=== PATIENT | male | born 1950 | race Caucasian/White ===

== ENCOUNTER 2018-05-20 16:12 | Emergency (ER) | payer OTHER ==
[~2018-05-20] VITALS: Ht 182.9 cm; Wt 72.6 kg
[2018-05-20 17:02] LABS: BASOPHILS PERCENT AUTO 1 % (0-2); EOSINOPHILS ABSOLUTE AUTO 0.32 K/mm3 (0.00-0.68); EOSINOPHILS PERCENT AUTO 4 % (0-6); Hematocrit 45.3 % (37.0-53.0); Hemoglobin 15.8 g/dL (13.5-17.5); IMMATURE GRAN ABSOLUTE AUTO 0.02 K/mm3 (0.00-0.10); IMMATURE GRAN PERCENT AUTO 0 % (0-1); LYMPHOCYTES PERCENT AUTO 21 % (21-46); MONOCYTES ABSOLUTE AUTO 0.64 K/mm3 (0.16-1.47); MONOCYTES PERCENT AUTO 9 % (4-13); Mean Corpuscular HGB Conc 34.9 g/dL (31.5-36.5); Mean Corpuscular Volume 95 fL (80-100); Mean Platelet Volume 9.4 fL (9.1-12.4); NEUTROPHILS ABSOLUTE AUTO 4.86 K/mm3 (1.96-9.15); NEUTROPHILS PERCENT AUTO 65 % (41-73); Platelet Count 187 K/mm3 (150-400); RDW Coefficient Variation 11.7 % (11.7-14.2); RDW Standard Deviation 40.6 fL (35.1-46.3); Red Blood Cell Count 4.79 M/mm3 (4.30-5.90); White Blood Cell Count 7.54 K/mm3 (4.00-11.30)
[2018-05-20] MEDS ORDERED: ONDA4ODT MM (17:31)
[2018-05-20 17:32] LABS: Alanine Aminotransfer (ALT/SGP 27 U/L (12-78); Albumin, Blood 3.9 g/dL (3.4-5.0); Albumin/Globulin Ratio 1.2 (0.8-1.8); Alk Phos 67 U/L (50-136); Anion Gap 8 mmol/L (6-16); Aspartate Aminotrans (AST/SGOT 13 U/L (12-37); Bilirubin, Total 0.4 mg/dL (0.1-1.0); Blood Urea Nitrogen 19 mg/dL (8-24); Bun/Creatinine Ratio 25.9 (12.0-20.0); CO2, Blood 29 mmol/L (21-32); Calcium, Blood 9.3 mg/dL (8.5-10.1); Chloride, Blood 106 mmol/L (98-108); Creatinine, Blood 0.73 mg/dL (0.60-1.20); Globulin, Blood 3.2 g/dL (2.2-4.0); Glomerular Filtration Rate >60 (60-); Glucose, Blood 155 mg/dL (70-99); Potassium, Blood 3.3 mmol/L (3.5-5.5); Sodium, Blood 143 mmol/L (136-145); Total Protein, Blood 7.1 g/dL (6.4-8.2); Troponin I <0.015 ng/mL (0.000-0.040)
== END 2018-05-20 18:20 | disposition home or self-care (01) ==
LOC: ER 16:12
PROVIDERS: Emergency Medicine
DX: R55 Syncope and collapse (principal); E11.9 Type 2 diabetes mellitus without complications
CPT/HCPCS: 71046; 80053; 84484; 85025; 93005; 93010; 99284-25

== ENCOUNTER 2018-12-23 15:15 | Inpatient (IN) | payer OTHER ==
[~2018-12-23] VITALS: Ht 167.6 cm; Wt 71.2 kg
[~2018-12-23 15:15] MED LIST: ONDA4ODT MM
[2018-12-23 15:57] LABS: BASOPHILS ABSOLUTE AUTO 0.07 K/mm3 (0.00-0.23); BASOPHILS PERCENT AUTO 1 % (0-2); EOSINOPHILS PERCENT AUTO 5 % (0-6); Hematocrit 47.1 % (37.0-53.0); Hemoglobin 16.1 g/dL (13.5-17.5); IMMATURE GRAN ABSOLUTE AUTO 0.02 K/mm3 (0.00-0.10); IMMATURE GRAN PERCENT AUTO 0 % (0-1); LYMPHOCYTES ABSOLUTE AUTO 2.03 K/mm3 (0.84-5.20); LYMPHOCYTES PERCENT AUTO 26 % (21-46); MONOCYTES ABSOLUTE AUTO 0.68 K/mm3 (0.16-1.47); MONOCYTES PERCENT AUTO 9 % (4-13); Mean Corpuscular HGB 33.6 pg (26.0-34.0); Mean Corpuscular HGB Conc 34.2 g/dL (31.5-36.5); Mean Corpuscular Volume 98 fL (80-100); Mean Platelet Volume 9.7 fL (9.1-12.4); NEUTROPHILS ABSOLUTE AUTO 4.59 K/mm3 (1.96-9.15); NEUTROPHILS PERCENT AUTO 59 % (41-73); Platelet Count 191 K/mm3 (150-400); RDW Coefficient Variation 11.6 % (11.7-14.2); RDW Standard Deviation 41.9 fL (35.1-46.3); Red Blood Cell Count 4.79 M/mm3 (4.30-5.90); White Blood Cell Count 7.79 K/mm3 (4.00-11.30)
[2018-12-23 16:10] LABS: Alanine Aminotransfer (ALT/SGP 26 U/L (12-78); Albumin, Blood 3.7 g/dL (3.4-5.0); Albumin/Globulin Ratio 1.2 (0.8-1.8); Alk Phos 85 U/L (50-136); Anion Gap 5 mmol/L (6-16); Aspartate Aminotrans (AST/SGOT 12 U/L (12-37); Bilirubin, Total 0.4 mg/dL (0.1-1.0); Blood Urea Nitrogen 25 mg/dL (8-24); CO2, Blood 26 mmol/L (21-32); Chloride, Blood 109 mmol/L (98-108); Creatinine, Blood 0.78 mg/dL (0.60-1.20); Glomerular Filtration Rate >60 (60-); Glucose, Blood 99 mg/dL (70-99); Potassium, Blood 4.2 mmol/L (3.5-5.5); Sodium, Blood 140 mmol/L (136-145); Total Protein, Blood 6.7 g/dL (6.4-8.2); Troponin I <0.015 ng/mL (0.000-0.040)
[2018-12-23] MEDS ORDERED: Spironolactone25 MG PO (16:36)
[2018-12-23] MEDS ORDERED: TRAZ50 PO (16:36)
[2018-12-23] MEDS ORDERED: VENLAFAXINE HCL75 MG PO (16:37)
[2018-12-23] MEDS ORDERED: LOSARTAN POTAS100 MG PO (16:37)
[2018-12-23] MEDS ORDERED: Amlodipine Besy10 MG PO (16:38)
[2018-12-23] MEDS ORDERED: Inderal80 MG PO (16:38)
[2018-12-23] MEDS ORDERED: JARDIANCE25 MG PO (16:38)
[2018-12-23] MEDS ORDERED: TRULICITY0.75 MG/0. SC (16:39)
[2018-12-23] MEDS ORDERED: Pravachol40 MG PO (16:39)
[2018-12-23] MEDS ORDERED: METFORMIN HCL500 MG PO (16:40)
[2018-12-23] MEDS ORDERED: GLIP5 PO (16:41)
[2018-12-23] MEDS ORDERED: Ventolin/Prove6.7 GM INH (16:53)
--- NOTE | 2018-12-23 18:49 | NUR ---
PT ARRIVED TO PCU 3 VIA GURNEY FROM ED. REPORT WAS OBTAINED. PT HAS NO SYMPTOMS, STATES HE FEELS FINE, IS A/OX3, INDEPENDENT, ASKING TO GO SMOKE, THIS WAS DISCURAGED, AT BEDSIDE, SHE IS A MEDICAL FLOOR NURSE, Arron CORTÉS. AFEBRILE, ORIENTED TO ROOM LAYOUT CALL SYSTEM, CALL LIGHT IN REACH.
[2018-12-24 04:07] LABS: BASOPHILS ABSOLUTE AUTO 0.11 K/mm3 (0.00-0.23); BASOPHILS PERCENT AUTO 1 % (0-2); EOSINOPHILS ABSOLUTE AUTO 0.39 K/mm3 (0.00-0.68); EOSINOPHILS PERCENT AUTO 5 % (0-6); Hematocrit 46.1 % (37.0-53.0); Hemoglobin 15.6 g/dL (13.5-17.5); IMMATURE GRAN ABSOLUTE AUTO 0.02 K/mm3 (0.00-0.10); IMMATURE GRAN PERCENT AUTO 0 % (0-1); LYMPHOCYTES ABSOLUTE AUTO 3.08 K/mm3 (0.84-5.20); LYMPHOCYTES PERCENT AUTO 38 % (21-46); MONOCYTES ABSOLUTE AUTO 0.71 K/mm3 (0.16-1.47); MONOCYTES PERCENT AUTO 9 % (4-13); Mean Corpuscular HGB 33.2 pg (26.0-34.0); Mean Corpuscular HGB Conc 33.8 g/dL (31.5-36.5); Mean Corpuscular Volume 98 fL (80-100); Mean Platelet Volume 9.8 fL (9.1-12.4); NEUTROPHILS ABSOLUTE AUTO 3.74 K/mm3 (1.96-9.15); NEUTROPHILS PERCENT AUTO 47 % (41-73); Platelet Count 171 K/mm3 (150-400); RDW Coefficient Variation 11.4 % (11.7-14.2); RDW Standard Deviation 41.9 fL (35.1-46.3); White Blood Cell Count 8.05 K/mm3 (4.00-11.30)
[2018-12-24 04:30] LABS: Alanine Aminotransfer (ALT/SGP 21 U/L (12-78); Albumin, Blood 3.5 g/dL (3.4-5.0); Albumin/Globulin Ratio 1.2 (0.8-1.8); Alk Phos 83 U/L (50-136); Anion Gap 8 mmol/L (6-16); Aspartate Aminotrans (AST/SGOT 11 U/L (12-37); Bilirubin, Total 0.2 mg/dL (0.1-1.0); Blood Urea Nitrogen 26 mg/dL (8-24); Bun/Creatinine Ratio 31.5 (12.0-20.0); CO2, Blood 25 mmol/L (21-32); Calcium, Blood 8.6 mg/dL (8.5-10.1); Chloride, Blood 109 mmol/L (98-108); Creatinine, Blood 0.83 mg/dL (0.60-1.20); Globulin, Blood 2.9 g/dL (2.2-4.0); Glomerular Filtration Rate >60 (60-); Glucose, Blood 184 mg/dL (70-99); Magnesium, Blood 1.8 mg/dL (1.6-2.4); Potassium, Blood 3.7 mmol/L (3.5-5.5); Sodium, Blood 142 mmol/L (136-145); Total Protein, Blood 6.4 g/dL (6.4-8.2)
--- NOTE | 2018-12-24 05:23 | NUR ---
SHIFT SUMMARY PT SLEEPING IN ROOM COMFORTABLY AT THIS TIME. NO ACUTE CHANGES IN STATUS SINCE ARRIVAL TO UNIT. PT SLEPT WELL T/O NIGHT. DENIED NEEDS. RESP EVEN UNLABORED ON RA W/ SATS >92%. DENIED ANY CP OR SOB T/O NIGHT. PT DID HAVE SEVERAL EPISDOES OF SINUS GHANSHYAM AND INTERMITTEN 2ND HB. PT REMAINED ASYMPTOMATIC DURING THESE TIMES. HR WAS NOTED TO DROP TO 30'S AT TIMES DURING HB, PT IN SR WHEN NOT IN HB. DENIED PAIN. PT MADE NPO AT MIDNIGHT FOR DUAL CHAMBER PACER PLACEMENT IN AM BY CARDIO. CALL LIGHT IN REACH.
--- NOTE | 2018-12-24 12:30 | NUR ---
NOTIFIED PT IS TO BE DISCHARGED FROM AFTERNOON BABYSITTER AFTER PROCEDURE.
--- NOTE | 2018-12-24 13:12 | NUR ---
DISCHARGE PAPERWORK SPOKE WITH VICKEY Wills RN. SHE STATED THAT SHE WILL COMPLETE DISCHARGE PAPWERWORK AND LET US KNOW WHEN IT IS COMPLETE.
--- NOTE | 2018-12-24 13:50 | NUR ---
PT UP IN THE CHAIR EATING LUNCH. PT ALERT AND ORIENTED, PLEASENT AND COOPERATIVE. PT DENIES PAIN OR DISCOMFORT. MONITOR V PACED 80'S, B/P 126/68, SPO2 97% RA. L CHEST PACEMAKER SITE, NO SWELLING/HEMATOMA, PRESSURE DRSG INTACT.
--- NOTE | 2018-12-24 14:30 | NUR ---
PT AMB TO BATHROOM, TOLERATED ACTIVITY WELL; PRESSURE DRSG REMOVED SITE WITHOUT SWELLING/HEMATOMA, TEGADERM DRSG INTACT. PT'S IV REMOVED-CANNULA INTACT, ASSISTING PT GETTING DRESSED.
--- NOTE | 2018-12-24 14:42 | NUR ---
PT AND WIFRE RECEIVED DISCHARGE INSTRUCTIONS, MED LIST AND "AFTER CARE" INSTRUCTIONS; VERBALIZED GOOD UNDERSTANING. PT WAS SENT HOME WITH A SLING TO LIMIT MOVEMENT OF LEFT ARM.
--- NOTE | 2018-12-24 15:02 | NUR ---
PT SITTING IN BED; SPOUSE AT BEDSIDE; PT A&O X 4; PT NPO FOR PACER PLACEMENT TODAY; PT CALM AND COMPLIANT W/ CARE; LUNG SOUNDS CLEAR T/O; BREATHING EVEN AND UNLABORED; ON RA W/ O2 SATS >92; NO EDEMA NOTED; PT TO GO TO AUTOMOBILE [employer]RA[employer] BONDER THIS AM; BED IN LOWEST POSITION; CALL LIGHT IN REACH; WILL CONTINUE TO MONITOR
== END 2018-12-24 14:42 | disposition home or self-care (01) | DRG 244 ==
LOC: ER 15:15 → PCU 17:20
PROVIDERS: Emergency Medicine; ADMIT Internal Medicine
PROC: 0JH606Z Insertion of Pacemaker, Dual Chamber into Chest Subcutaneous Tissue and Fascia, Open Approach (ICD-10-PCS; principal; 2018-12-24)
PROC: 02HK3JZ Insertion of Pacemaker Lead into Right Ventricle, Percutaneous Approach (ICD-10-PCS; 2018-12-24)
DX: I44.1 Atrioventricular block, second degree (principal); I25.10 Atherosclerotic heart disease of native coronary artery without angina pectoris; I10 Essential (primary) hypertension; E11.9 Type 2 diabetes mellitus without complications; E78.5 Hyperlipidemia, unspecified; F41.8 Other specified anxiety disorders; I35.0 Nonrheumatic aortic (valve) stenosis; Z95.1 Presence of aortocoronary bypass graft
CPT/HCPCS: 33208; 36415; 71046; 80053; 82947; 83036; 83735; 84443; 84484; 85025; 93005; 93010; 99152; 99153; 99284-25; C1785; C1898; J0690; J1644; J2250; J3010; J7030; J7040

== ENCOUNTER → 2020-05-21 | Outpatient (CLI) | payer BC, OTHER ==
[~2020-05-21] MED LIST changes: +Afrin15 ML; +Amlodipine Besy10 MG PO; +GLIP5 PO; +HYDR1TAB94 PO; +Inderal40 MG PO; +Inderal80 MG PO; +JARDIANCE25 MG PO; +LOSARTAN POTAS100 MG PO; +MELATONIN5 M1 PO; +METFORMIN HCL500 MG PO; +NEURONTIN300 MG PO; +OMEP20ER PO; +OZEMPIC0.25 MG/0. SC; +Pravachol40 MG PO; +Spironolactone25 MG PO; +TAMS.4ER PO; +TAMSULOSIN HCL0.4 M1 PO; +TRAZ50 PO; +TRULICITY0.75 MG/0. SC; +VENLAFAXINE HCL75 MG PO; +Ventolin/Prove6.7 GM INH
[2020-05-22 10:20] LABS: Stool Occult Bld Immuno 1 Negative (NEGATIVE)
[2020-05-22 11:52] LABS: C DIFFICILE DNA Negative (Negative)
== END | disposition home or self-care (01) ==
LOC: LAB SHORT 08:15 → LAB EV 08:15
PROVIDERS: General Practice
DX: R10.9 Unspecified abdominal pain (principal)
CPT/HCPCS: 82274; 87015; 87045; 87046; 87205; 87328; 87493; 87899

== ENCOUNTER → 2023-07-24 | Outpatient (CLI) | payer OTHER ==
[~2023-07-24] MED LIST changes: +ALBU90OI INH; +ASPI81CH PO; +CEFTRIAXONE2 G1 IV; +Flonase 0.05% N16 GM; +LACRI-LUBE BOTHEYES; +LOSA50 PO; +METF500 PO; +MOUNJARO2.5 MG/0.5; +Nicoderm Cq1 EAC1 TOP; +PRAVASTATIN SOD40 MG PO; -Pravachol40 MG PO; +VISBIOME 112.51 EACH PO; +[UNRECOGNIZED DRUG - CODE] MT
[2023-07-24 13:35] LABS: BASOPHILS ABSOLUTE AUTO 0.14 K/mm3 (0.00-0.23); BASOPHILS PERCENT AUTO 2 % (0-2); EOSINOPHILS ABSOLUTE AUTO 0.21 K/mm3 (0.00-0.68); EOSINOPHILS PERCENT AUTO 2 % (0-6); Hematocrit 36.7 % (37.0-53.0); Hemoglobin 12.3 g/dL (13.5-17.5); IMMATURE GRAN PERCENT AUTO 1 % (0-1); LYMPHOCYTES ABSOLUTE AUTO 1.79 K/mm3 (0.84-5.20); LYMPHOCYTES PERCENT AUTO 19 % (21-46); MONOCYTES ABSOLUTE AUTO 0.55 K/mm3 (0.16-1.47); MONOCYTES PERCENT AUTO 6 % (4-13); Mean Corpuscular HGB 33.3 pg (26.0-34.0); Mean Corpuscular HGB Conc 33.5 g/dL (31.5-36.5); Mean Corpuscular Volume 100 fL (80-100); Mean Platelet Volume 10.2 fL (9.1-12.4); NEUTROPHILS ABSOLUTE AUTO 6.43 K/mm3 (1.96-9.15); NEUTROPHILS PERCENT AUTO 70 % (41-73); Platelet Count 229 K/mm3 (150-400); RDW Coefficient Variation 12.7 % (11.7-14.2); RDW Standard Deviation 45.1 fL (35.1-46.3); Red Blood Cell Count 3.69 M/mm3 (4.30-5.90); White Blood Cell Count 9.22 K/mm3 (4.00-11.30)
[2023-07-24 14:46] LABS: Albumin, Blood 2.8 g/dL (3.4-5.0); Albumin/Globulin Ratio 0.7 (0.8-1.8); Bilirubin, Total 0.3 mg/dL (0.1-1.0); Calcium, Blood 8.8 mg/dL (8.5-10.1); Creatinine, Blood 0.67 mg/dL (0.60-1.20); Globulin, Blood 3.8 g/dL (2.2-4.0); Potassium, Blood 3.9 mmol/L (3.5-5.5); Total Protein, Blood 6.6 g/dL (6.4-8.2)
== END ==
LOC: LAB EV 11:29 → LAB SHORT 11:29
PROVIDERS: Nurse Practitioner Family
DX: A41.9 Sepsis, unspecified organism (principal)
CPT/HCPCS: 80053; 85025

== ENCOUNTER → 2023-07-31 | Outpatient (CLI) | payer OTHER ==
[2023-07-31 19:15] LABS: BASOPHILS ABSOLUTE AUTO 0.15 K/mm3 (0.00-0.23); BASOPHILS PERCENT AUTO 1 % (0-2); EOSINOPHILS ABSOLUTE AUTO 0.45 K/mm3 (0.00-0.68); EOSINOPHILS PERCENT AUTO 4 % (0-6); Hematocrit 36.7 % (37.0-53.0); Hemoglobin 12.3 g/dL (13.5-17.5); IMMATURE GRAN ABSOLUTE AUTO 0.05 K/mm3 (0.00-0.10); IMMATURE GRAN PERCENT AUTO 1 % (0-1); LYMPHOCYTES ABSOLUTE AUTO 1.76 K/mm3 (0.84-5.20); LYMPHOCYTES PERCENT AUTO 17 % (21-46); MONOCYTES ABSOLUTE AUTO 0.43 K/mm3 (0.16-1.47); MONOCYTES PERCENT AUTO 4 % (4-13); Mean Corpuscular HGB 33.7 pg (26.0-34.0); Mean Corpuscular HGB Conc 33.5 g/dL (31.5-36.5); Mean Corpuscular Volume 101 fL (80-100); Mean Platelet Volume 9.8 fL (9.1-12.4); NEUTROPHILS ABSOLUTE AUTO 7.52 K/mm3 (1.96-9.15); NEUTROPHILS PERCENT AUTO 73 % (41-73); Platelet Count 233 K/mm3 (150-400); RDW Coefficient Variation 13.7 % (11.7-14.2); Red Blood Cell Count 3.65 M/mm3 (4.30-5.90); White Blood Cell Count 10.36 K/mm3 (4.00-11.30)
[2023-07-31 19:24] LABS: Albumin, Blood 2.9 g/dL (3.4-5.0); Albumin/Globulin Ratio 0.8 (0.8-1.8); Bilirubin, Total 0.2 mg/dL (0.1-1.0); Bun/Creatinine Ratio 30.7 (12.0-20.0); Calcium, Blood 8.7 mg/dL (8.5-10.1); Creatinine, Blood 0.65 mg/dL (0.60-1.20); Globulin, Blood 3.6 g/dL (2.2-4.0); Potassium, Blood 4.3 mmol/L (3.5-5.5); Total Protein, Blood 6.5 g/dL (6.4-8.2)
== END | disposition home or self-care (01) ==
LOC: LAB 15:32 → LAB SHORT 15:32
PROVIDERS: Nurse Practitioner Family
DX: E11.42 Type 2 diabetes mellitus with diabetic polyneuropathy (principal); R78.81 Bacteremia; Z79.2 Long term (current) use of antibiotics
CPT/HCPCS: 80053; 85025

== ENCOUNTER → 2023-08-07 | Outpatient (CLI) | payer OTHER ==
[~2023-08-07] MED LIST changes: +ATOR40TA PO; +CLOP75 PO; +FAMO20 PO
[2023-08-07 14:18] LABS: Albumin, Blood 3.3 g/dL (3.4-5.0); Albumin/Globulin Ratio 1.1 (0.8-1.8); Bilirubin, Total 0.2 mg/dL (0.1-1.0); Bun/Creatinine Ratio 23.3 (12.0-20.0); Calcium, Blood 8.5 mg/dL (8.5-10.1); Creatinine, Blood 0.69 mg/dL (0.60-1.20); Globulin, Blood 3.1 g/dL (2.2-4.0); Potassium, Blood 4.5 mmol/L (3.5-5.5); Total Protein, Blood 6.4 g/dL (6.4-8.2)
[2023-08-07 14:52] LABS: BASOPHILS ABSOLUTE AUTO 0.12 K/mm3 (0.00-0.23); BASOPHILS PERCENT AUTO 2 % (0-2); EOSINOPHILS ABSOLUTE AUTO 0.73 K/mm3 (0.00-0.68); EOSINOPHILS PERCENT AUTO 12 % (0-6); Hematocrit 38.8 % (37.0-53.0); Hemoglobin 12.6 g/dL (13.5-17.5); IMMATURE GRAN ABSOLUTE AUTO 0.02 K/mm3 (0.00-0.10); IMMATURE GRAN PERCENT AUTO 0 % (0-1); LYMPHOCYTES ABSOLUTE AUTO 1.32 K/mm3 (0.84-5.20); LYMPHOCYTES PERCENT AUTO 21 % (21-46); MONOCYTES ABSOLUTE AUTO 0.38 K/mm3 (0.16-1.47); MONOCYTES PERCENT AUTO 6 % (4-13); Mean Corpuscular HGB 33.2 pg (26.0-34.0); Mean Corpuscular HGB Conc 32.5 g/dL (31.5-36.5); Mean Corpuscular Volume 102 fL (80-100); Mean Platelet Volume 9.5 fL (9.1-12.4); NEUTROPHILS ABSOLUTE AUTO 3.77 K/mm3 (1.96-9.15); NEUTROPHILS PERCENT AUTO 60 % (41-73); Platelet Count 204 K/mm3 (150-400); RDW Coefficient Variation 13.8 % (11.7-14.2); RDW Standard Deviation 51.9 fL (35.1-46.3); White Blood Cell Count 6.34 K/mm3 (4.00-11.30)
== END | disposition home or self-care (01) ==
LOC: LAB 12:42 → LAB SHORT 12:42
PROVIDERS: Nurse Practitioner Family
DX: A41.9 Sepsis, unspecified organism (principal)
CPT/HCPCS: 80053; 85025

== ENCOUNTER 2023-08-19 16:37 | Inpatient (IN) | payer OTHER ==
[~2023-08-19] VITALS: Ht 167.6 cm; Wt 64.9 kg
[~2023-08-19 16:37] MED LIST changes: -ATOR40TA PO; -CLOP75 PO; -FAMO20 PO
[2023-08-19 17:42] LABS: BASOPHILS PERCENT AUTO 2 % (0-2); EOSINOPHILS PERCENT AUTO 6 % (0-6); Hematocrit 38.9 % (37.0-53.0); Hemoglobin 13.2 g/dL (13.5-17.5); IMMATURE GRAN ABSOLUTE AUTO 0.02 K/mm3 (0.00-0.10); IMMATURE GRAN PERCENT AUTO 0 % (0-1); LYMPHOCYTES ABSOLUTE AUTO 1.67 K/mm3 (0.84-5.20); LYMPHOCYTES PERCENT AUTO 26 % (21-46); MONOCYTES ABSOLUTE AUTO 0.62 K/mm3 (0.16-1.47); MONOCYTES PERCENT AUTO 10 % (4-13); Mean Corpuscular HGB 33.5 pg (26.0-34.0); Mean Corpuscular HGB Conc 33.9 g/dL (31.5-36.5); Mean Corpuscular Volume 99 fL (80-100); Mean Platelet Volume 9.3 fL (9.1-12.4); NEUTROPHILS ABSOLUTE AUTO 3.68 K/mm3 (1.96-9.15); NEUTROPHILS PERCENT AUTO 57 % (41-73); Platelet Count 216 K/mm3 (150-400); RDW Coefficient Variation 13.2 % (11.7-14.2); RDW Standard Deviation 47.9 fL (35.1-46.3); Red Blood Cell Count 3.94 M/mm3 (4.30-5.90); White Blood Cell Count 6.49 K/mm3 (4.00-11.30)
[2023-08-19 18:04] LABS: Albumin, Blood 3.3 g/dL (3.4-5.0); Albumin/Globulin Ratio 0.9 (0.8-1.8); Bilirubin, Total 0.3 mg/dL (0.1-1.0); Bun/Creatinine Ratio 33.6 (12.0-20.0); Calcium, Blood 8.8 mg/dL (8.5-10.1); Creatinine, Blood 0.68 mg/dL (0.60-1.20); Globulin, Blood 3.7 g/dL (2.2-4.0)
[2023-08-19] MEDS ORDERED: Clopidogrel Bisulfate 75 MG Tab PO ONE (19:10)
[2023-08-19] MEDS ORDERED: NS 1,000 ML IV SCH (20:20)
[2023-08-19] MEDS ORDERED: Albuterol HFA200 ACT/6.7 GM INH INH PRN (20:40)
[2023-08-19 20:48] LABS: C-REACTIVE PROTEIN, EXT RANGE 0.664 mg/dL (0.000-0.300)
[2023-08-19] MEDS ORDERED: Propranolol HCL 20 MG TAB PO SCH (21:00)
[2023-08-19] MEDS ORDERED: Pravastatin Sodium 20 MG Tab PO SCH (21:00)
[2023-08-19] MEDS ORDERED: Tamsulosin HCl 0.4 MG Cap PO SCH (21:00)
[2023-08-19] MEDS ORDERED: TraZODone HCl 50 MG Tab PO SCH (21:00)
[2023-08-19 21:53] VITALS: BP 175/92
[2023-08-20 05:14] VITALS: BP 150/87
[2023-08-20] MEDS ORDERED: Pantoprazole Sodium 40 MG Tab PO SCH (06:00)
[2023-08-20 06:06] LABS: CHOL/HDL RATIO 4.1; Cholesterol 143 mg/dL (50-200); HDL Cholesterol 35 mg/dL (>39); LDL/HDL RATIO 1.2; Low Density Lipoprotein Chol 41 mg/dL (0-110); Triglycerides 335 mg/dL (30-160); Very Low Density Lipoprot Chol 67 mg/dL (6-32)
--- NOTE | 2023-08-20 06:07 | NUR ---
Patient arrived to room from ED around 2129. Patient alert and oriented x3, VSS, resting comfortably in bed. Patient notes significant double vision, no other acute neurological changes noted on assessment. NS @ 100 mLs/hr tolerated well to left upper arm PICC placed prior to this admission. Patient voiding in urinal independently.
[2023-08-20 07:02] VITALS: BP 151/86
[2023-08-20] MEDS ORDERED: Insulin Human Lispro 100 Units/ML 3ML Syringe SC SCH (07:30)
[2023-08-20] MEDS ORDERED: Enoxaparin 40 MG/0.4 ML SYR SC SCH (09:00)
[2023-08-20] MEDS ORDERED: Clopidogrel Bisulfate 75 MG Tab PO SCH (09:00)
[2023-08-20] MEDS ORDERED: Venlafaxine HCl 75 MG CapCR PO SCH (09:00)
[2023-08-20] MEDS ORDERED: Aspirin 81 MG Chew PO SCH (09:00)
[2023-08-20] MEDS ORDERED: Empagliflozin 25 MG TAB PO SCH (09:00)
[2023-08-20] MEDS ORDERED: ATOR40TA PO (16:58)
[2023-08-20] MEDS ORDERED: CLOP75 PO (16:59)
[2023-08-20] MEDS ORDERED: FAMO20 PO (16:59)
[2023-08-20] MEDS ORDERED: LOSA50 PO (16:59)
--- NOTE | 2023-08-20 17:21 | NUR ---
SHIFT SUMMARY PATIENT ALERT AND INTERACTIVE. PATIENT CONTINUES TO HAVE DOUBLE VISION AND BLURRY VISION. IMPROVES WITH WEARING AN EYE PATCH. PATIENT WEAK BUT ABLE TO MOVE AROUND. PATIENT ASSESSED BY PT. PATIENT BEING DISCHARGED TO HOME WITH HOME HEALTH. PERIPHERAL IV REMOVED. PICC LINE LEFT IN PLACE. PATIENT TO BE FOLLOWED UP WITH HOME HEALTH. DISCHARGE INSTRUCTIONS REVIEWED WITH PATIENT AND . PACKET SENT HOME WITH PATIENT. RX SENT TO [facility]. PLAVIX DOSE GIVEN EARLIER TODAY. PATIENT TAKEN OUT VIA WHEELCHAIR. BELONGINGS SENT WITH PATIENT.
== END 2023-08-20 17:18 | disposition home health service (06) | DRG 66 ==
LOC: ER 16:37 → MEDS 20:15
PROVIDERS: Emergency Medicine; Nurse Practitioner Acute Care; ADMIT Student in an Organized Health Care Education/Training Program
DX: I63.9 Cerebral infarction, unspecified (principal); H53.2 Diplopia; Z88.8 Allergy status to other drugs, medicaments and biological substances; F17.210 Nicotine dependence, cigarettes, uncomplicated; I25.10 Atherosclerotic heart disease of native coronary artery without angina pectoris; Z95.1 Presence of aortocoronary bypass graft; E78.5 Hyperlipidemia, unspecified; K21.9 Gastro-esophageal reflux disease without esophagitis; E11.9 Type 2 diabetes mellitus without complications; N40.0 Benign prostatic hyperplasia without lower urinary tract symptoms; I10 Essential (primary) hypertension; Z95.0 Presence of cardiac pacemaker; H53.8 Other visual disturbances; Z95.2 Presence of prosthetic heart valve; Z79.899 Other long term (current) drug therapy; Z79.84 Long term (current) use of oral hypoglycemic drugs; Z79.82 Long term (current) use of aspirin; Z98.890 Other specified postprocedural states
CPT/HCPCS: 36415; 70450; 70496; 70498; 80053; 80061; 82947; 83036; 85025; 85651; 86140; 93005; 93010; 93880; 94760; 97116; 97162; 97165; 97530; 97535; A9270; J1650; J7030; Q9967

== ENCOUNTER 2023-08-31 19:29 | Inpatient (IN) | payer OTHER ==
[~2023-08-31] VITALS: Ht 165.1 cm; Wt 63.1 kg
[~2023-08-31 19:29] MED LIST changes: +ATOR40TA PO; +CLOP75 PO; +FAMO20 PO
[2023-08-31 20:32] LABS: Hematocrit 40.6 % (37.0-53.0); Hemoglobin 13.9 g/dL (13.5-17.5); Mean Corpuscular HGB 33.3 pg (26.0-34.0); Mean Corpuscular HGB Conc 34.2 g/dL (31.5-36.5); Mean Corpuscular Volume 97 fL (80-100); Mean Platelet Volume 9.2 fL (9.1-12.4); Platelet Count 225 K/mm3 (150-400); RDW Coefficient Variation 12.7 % (11.7-14.2); RDW Standard Deviation 45.6 fL (35.1-46.3); Red Blood Cell Count 4.18 M/mm3 (4.30-5.90); White Blood Cell Count 6.74 K/mm3 (4.00-11.30)
[2023-08-31 20:46] LABS: International Normalized Ratio 1.05; Prothrombin Time Results 11.2 Sec (9.7-11.5)
[2023-08-31 20:53] LABS: Albumin, Blood 3.9 g/dL (3.4-5.0); Albumin/Globulin Ratio 1.1 (0.8-1.8); Bilirubin, Total 0.4 mg/dL (0.1-1.0); Bun/Creatinine Ratio 20.8 (12.0-20.0); Calcium, Blood 8.9 mg/dL (8.5-10.1); Creatinine, Blood 1.01 mg/dL (0.60-1.20); Globulin, Blood 3.4 g/dL (2.2-4.0); Potassium, Blood 3.7 mmol/L (3.5-5.5); Total Protein, Blood 7.3 g/dL (6.4-8.2)
[2023-08-31 20:55] LABS: BASOPHILS PERCENT MAN 3 % (0-2); EOSINOPHILS ABSOLUTE MAN 0.33 K/mm3 (0.00-0.68); EOSINOPHILS PERCENT MAN 5 % (0-6); LYMPHOCYTES ABSOLUTE MAN 1.95 K/mm3 (0.84-5.20); LYMPHOCYTES PERCENT MAN 29 % (21-46); MONOCYTES ABSOLUTE MAN 0.53 K/mm3 (0.16-1.47); MONOCYTES PERCENT MAN 8 % (4-13); SEG NEUTROPHILS PERCENT MAN 55 % (41-73); TOTAL CELLS COUNTED 100
[2023-08-31] MEDS ORDERED: DICLOFENAC SOD100 GM TP (23:36)
[2023-08-31] MEDS ORDERED: JARDIANCE25 MG PO (23:38)
[2023-08-31] MEDS ORDERED: PRAV20 PO (23:39)
[2023-08-31] MEDS ORDERED: Famotidine 20 MG Tab PO ONE (23:50)
[2023-08-31] MEDS ORDERED: Heparin Sodium,Porcine/0.5 NS 500 ML IV SCH (23:55)
[2023-09-01] VITALS (12 sets, daily range): BP systolic 114–144; BP diastolic 72–89
[2023-09-01 00:02] LABS: Anti-Xa UFH, PHA Monitoring <0.10 IU/mL
[2023-09-01] MEDS ORDERED: Acetaminophen 325 MG TABLET PO PRN (00:10)
[2023-09-01] MEDS ORDERED: TraZODone HCl 100 MG Tab PO PRN (00:10)
[2023-09-01] MEDS ORDERED: Heparin Sodium 5000 Units/ML 1ML MDV IV ONE ×2 (00:10→15:00)
[2023-09-01] MEDS ORDERED: Nicotine 14 MG PATCH TOP PRN (00:15)
[2023-09-01] MEDS ORDERED: Ondansetron HCl 2 MG / ML 2ML Vial IV PRN (00:15)
[2023-09-01] MEDS ORDERED: Lactated Ringer's 1,000 ML IV SCH (01:00)
[2023-09-01] MEDS ORDERED: Albuterol HFA200 ACT/6.7 GM INH INH PRN (01:20)
--- NOTE | 2023-09-01 04:50 | NUR ---
0110 Pt arrived on unit via yakov with RN in attendance. Ambulated from hallway to bed in room 19, eyal well. Oriented to room and unit per unit standards. Pt with recent extended stay in June, pt able to demonstate ability to call and anticipates fall risk precautions. Reinforced and reeducated fall precautions. Pt expresses understanding. Asmission assessment and questionare completed. Pt sleeping well this shift. Pt has remained painfree. Falls risk precautions maintained. Will change AM labs to 0700 when Heparin Anti-Xa drawn. Please see full assessment for additional details. No further complaints or concerns at this time, will continue to monitor.
[2023-09-01] MEDS ORDERED: Pantoprazole Sodium 40 MG Injection IV SCH (06:00)
[2023-09-01] MEDS ORDERED: Insulin Regular 100 UNIT/ML 10ML Vial SC SCH (06:00)
[2023-09-01] MEDS ORDERED: Propranolol HCL 20 MG TAB PO SCH (07:30)
[2023-09-01 08:24] LABS: BASOPHILS ABSOLUTE AUTO 0.14 K/mm3 (0.00-0.23); BASOPHILS PERCENT AUTO 2 % (0-2); EOSINOPHILS ABSOLUTE AUTO 0.54 K/mm3 (0.00-0.68); EOSINOPHILS PERCENT AUTO 7 % (0-6); Hematocrit 38.9 % (37.0-53.0); Hemoglobin 13.2 g/dL (13.5-17.5); IMMATURE GRAN ABSOLUTE AUTO 0.03 K/mm3 (0.00-0.10); IMMATURE GRAN PERCENT AUTO 0 % (0-1); LYMPHOCYTES ABSOLUTE AUTO 2.37 K/mm3 (0.84-5.20); LYMPHOCYTES PERCENT AUTO 31 % (21-46); MONOCYTES ABSOLUTE AUTO 0.62 K/mm3 (0.16-1.47); MONOCYTES PERCENT AUTO 8 % (4-13); Mean Corpuscular HGB 33.2 pg (26.0-34.0); Mean Corpuscular HGB Conc 33.9 g/dL (31.5-36.5); Mean Corpuscular Volume 98 fL (80-100); Mean Platelet Volume 9.5 fL (9.1-12.4); NEUTROPHILS ABSOLUTE AUTO 3.98 K/mm3 (1.96-9.15); NEUTROPHILS PERCENT AUTO 52 % (41-73); Platelet Count 197 K/mm3 (150-400); RDW Coefficient Variation 12.6 % (11.7-14.2); RDW Standard Deviation 45.6 fL (35.1-46.3); Red Blood Cell Count 3.97 M/mm3 (4.30-5.90); White Blood Cell Count 7.68 K/mm3 (4.00-11.30)
[2023-09-01 08:47] LABS: Albumin, Blood 3.5 g/dL (3.4-5.0); Albumin/Globulin Ratio 1.1 (0.8-1.8); Bilirubin, Total 0.3 mg/dL (0.1-1.0); Bun/Creatinine Ratio 26.3 (12.0-20.0); Calcium, Blood 8.8 mg/dL (8.5-10.1); Creatinine, Blood 0.76 mg/dL (0.60-1.20); Globulin, Blood 3.1 g/dL (2.2-4.0); Magnesium, Blood 1.6 mg/dL (1.6-2.4); Potassium, Blood 3.9 mmol/L (3.5-5.5); Total Protein, Blood 6.6 g/dL (6.4-8.2)
[2023-09-01] MEDS ORDERED: Atorvastatin 40 MG Tab PO SCH (09:00)
[2023-09-01] MEDS ORDERED: Clopidogrel Bisulfate 75 MG Tab PO SCH (09:00)
[2023-09-01] MEDS ORDERED: Venlafaxine HCl 75 MG CapCR PO SCH (09:00)
[2023-09-01] MEDS ORDERED: Empagliflozin 25 MG TAB PO SCH (09:00)
[2023-09-01] MEDS ORDERED: Losartan Potassium 50 MG Tab PO SCH (09:00)
[2023-09-01] MEDS ORDERED: Aspirin 81 MG Chew PO SCH ×2 (09:00)
[2023-09-01] MEDS ORDERED: Famotidine 20 MG Tab PO SCH (09:00)
[2023-09-01] MEDS ORDERED: Dose Adjust by Pharmacy XX STA (14:58)
[2023-09-01] MEDS ORDERED: Verapamil HCL 2.5 MG/ML 2ML Injection ONE (15:47)
[2023-09-01] MEDS ORDERED: Heparin Sodium 1000 Units/ML 10ML MDV ONE ×2 (15:47→16:01)
[2023-09-01] MEDS ORDERED: NS 1,000 ML IV ONE ×4 (15:47→17:15)
[2023-09-01] MEDS ORDERED: NS 250 ML IV ONE (15:47)
[2023-09-01] MEDS ORDERED: Nitroglycerin 2 MG/20 ML BTL ONE (15:48)
[2023-09-01] MEDS ORDERED: FentaNYL Citrate 50 MCG/ML 2 ML Injection ONE (16:00)
[2023-09-01] MEDS ORDERED: Midazolam HCl 1MG / ML 2ML Vial ONE (16:00)
--- NOTE | 2023-09-01 16:03 | NUR ---
Pt gone down to [facility] for his procdure at approximently 1600. , Maddy called and made aware per request.
[2023-09-01] MEDS ORDERED: Alteplase Recombinant 2 MG / Vial ONE (16:35)
[2023-09-01] MEDS ORDERED: NS 500 ML IV ONE (17:04)
--- NOTE | 2023-09-01 17:59 | NUR ---
PT BACK FROM PROCEDURE. R RADIAL ACCESS SITE W TR BAND & ARM BOARD IN PLACE. R GROIN W/ SCANT AMOUNT OF BLOOD NOTED AT SITE, OBSERVED W/ HC STAFF. HEPARIN GTT & LR GTT RESUMED UPON PT RETURN TO . PHARMACY NOTIFIED. PT A&O X4. VSS. SPO2 > 92% ON RA. MONITOR SHOWING SR, HR 60s.
--- NOTE | 2023-09-01 18:43 | NUR ---
shift summary Brennan Ennis x4- using his call light appropriately. Plan was to have MRI for his ongoing blurry vision- but unable to d/t having a pacemaker. Went down for a Thrombectomy- where they were only able to remove part of the clot- Brennan returned in stable condition- sites look good. Femoral site is noted to have some bleeding noted. VSS. Heparin drip resumed, IV fluids back to infusing at set rates- no issues noted throughout, will continue to monitor.
[2023-09-01] MEDS ORDERED: Tamsulosin HCl 0.4 MG Cap PO SCH (21:00)
[2023-09-01] MEDS ORDERED: Artificial Tear Opth Oint 3.5 GM BOTHEYES SCH (21:00)
[2023-09-02] MEDS ORDERED: Dose Adjust by Pharmacy XX STA ×4 (00:31→09:07)
--- NOTE | 2023-09-02 02:38 | NUR ---
2014 R groin site continues to ooze, Dr Diaz by to see pt, reported RLE ooze, plan to continue Heparin gtt per pharmacy and monitor. R Radial band band removed and dressing placed. Pt having difficulty following restrictions regarding keeping RLE immobile. Educated multiple times and pt expresses understanding. [address] in [address], continue to monitor. 2100 Diet changed to ADA and finger food given. This RN remains in room with pt to ensure restrictions are maintained during this time. 2200 Slow ooze continues, pt removed sand bag despite education. Manual pressure held, pt reports pain at site. Tyree dressing applied. 2330 Tyree saturated. Held pressure again, lab on way to draw Anti-Xa for heparin gtt. 2400 New tyree placed. 0030 Call to MD to request order for FemStop as staff has been unable to stop R groin site ooze for any significant amount of time. 0040 Femstop placed with bow stapler. Confered with pharmacy regarding continued bleeding, orders to hold heparin gtt for 1 hour and restart at 17u/kg/hr. 0300 Clot appears at base of tyree dressing. Femstop loosened and removed at this time. Will continue close monitoring of site.
[2023-09-02 03:00] VITALS: BP 117/84
[2023-09-02 04:11] LABS: Hematocrit 37.9 % (37.0-53.0); Hemoglobin 12.6 g/dL (13.5-17.5); Mean Corpuscular HGB 32.6 pg (26.0-34.0); Mean Corpuscular HGB Conc 33.2 g/dL (31.5-36.5); Mean Corpuscular Volume 98 fL (80-100); Mean Platelet Volume 9.3 fL (9.1-12.4); Platelet Count 196 K/mm3 (150-400); RDW Coefficient Variation 12.6 % (11.7-14.2); RDW Standard Deviation 45.1 fL (35.1-46.3); Red Blood Cell Count 3.87 M/mm3 (4.30-5.90)
[2023-09-02 04:32] LABS: Calcium, Blood 8.8 mg/dL (8.5-10.1); Creatinine, Blood 0.64 mg/dL (0.60-1.20)
[2023-09-02] MEDS ORDERED: Insulin Human Lispro 100 Units/ML 3ML Syringe SC SCH (07:30)
[2023-09-02 07:36] VITALS: BP 120/68
[2023-09-02] MEDS ORDERED: Apixaban 5 MG Tab PO SCH (11:00)
[2023-09-02 11:09] VITALS: BP 135/70
[2023-09-02] MEDS ORDERED: ELIQUIS5 M2 PO (11:35)
--- NOTE | 2023-09-02 12:30 | NUR ---
PT DISCHARGED AT 1220. IV DCD. PT DISCHARGE PROVIDED AND EDUCATED PT ON F/U CARE. PT WHEELED OUT BY RELATIONS LIAISON WITH ACCOMPANIED. DCD IN NO SIGNS OF DISTRESS.
== END 2023-09-02 12:39 | disposition home or self-care (01) | DRG 254 ==
LOC: ER 19:29 → PCU 19:30
PROVIDERS: Internal Medicine; Student in an Organized Health Care Education/Training Program; ADMIT Student in an Organized Health Care Education/Training Program
PROC: 03C73ZZ Extirpation of Matter from Right Brachial Artery, Percutaneous Approach (ICD-10-PCS; principal; 2023-09-01)
PROC: 03CB3ZZ Extirpation of Matter from Right Radial Artery, Percutaneous Approach (ICD-10-PCS; 2023-09-01)
PROC: 03C93ZZ Extirpation of Matter from Right Ulnar Artery, Percutaneous Approach (ICD-10-PCS; 2023-09-01)
PROC: B31H1ZZ Fluoroscopy of Right Upper Extremity Arteries using Low Osmolar Contrast (ICD-10-PCS; 2023-09-01)
PROC: B34HZZZ Ultrasonography of Right Upper Extremity Arteries (ICD-10-PCS; 2023-09-01)
PROC: 3E05317 Introduction of Other Thrombolytic into Peripheral Artery, Percutaneous Approach (ICD-10-PCS; 2023-09-01)
DX: I74.2 Embolism and thrombosis of arteries of the upper extremities (principal); H49.22 Sixth [abducent] nerve palsy, left eye; H53.2 Diplopia; E11.9 Type 2 diabetes mellitus without complications; I10 Essential (primary) hypertension; I25.10 Atherosclerotic heart disease of native coronary artery without angina pectoris; N40.0 Benign prostatic hyperplasia without lower urinary tract symptoms; F32.A Depression, unspecified; F17.210 Nicotine dependence, cigarettes, uncomplicated; E78.5 Hyperlipidemia, unspecified; J44.9 Chronic obstructive pulmonary disease, unspecified; G25.0 Essential tremor; E03.9 Hypothyroidism, unspecified; Z86.73 Personal history of transient ischemic attack (TIA), and cerebral infarction without residual deficits; Z95.0 Presence of cardiac pacemaker; Z88.8 Allergy status to other drugs, medicaments and biological substances; Z95.1 Presence of aortocoronary bypass graft; Z95.2 Presence of prosthetic heart valve; Z79.899 Other long term (current) drug therapy; Z79.84 Long term (current) use of oral hypoglycemic drugs; Z79.51 Long term (current) use of inhaled steroids; Z79.82 Long term (current) use of aspirin; Z79.2 Long term (current) use of antibiotics; Z98.890 Other specified postprocedural states
CPT/HCPCS: 36415; 37184; 37185; 37211; 75710; 75774; 76937; 80048; 80053; 82947; 83735; 85025; 85027; 85347; 85520; 85610; 85730; 93005; 93010; 94762; 96365; 96366; 99152; 99153; 99284-25; A9270; C1725; C1760; C1769; C1887; C1894; C9113; G0378; J1644; J1815; J2250; J2997; J3010; J7030; J7040; J7050; J7120; Q9967

== ENCOUNTER 2023-10-20 06:54 | Day surgery (SDC) | payer OTHER ==
[~2023-10-20] VITALS: Ht 167.6 cm; Wt 64.1 kg
[2023-10-20] VITALS (14 sets, daily range): BP systolic 126–154; BP diastolic 71–99
[~2023-10-20 06:54] MED LIST changes: +ATOR80 PO; +DICLOFENAC SOD100 GM TP; +ELIQUIS5 M2 PO; +NICO21TP TOP; +PRAV20 PO
[2023-10-20] MEDS ORDERED: Heparin Sodium 1000 Units/ML 10ML MDV ONE ×2 (07:28→08:43)
[2023-10-20] MEDS ORDERED: NS 500 ML IV ONE (07:28)
[2023-10-20] MEDS ORDERED: Nitroglycerin 2 MG/20 ML BTL ONE (07:29)
[2023-10-20] MEDS ORDERED: NS 1,000 ML IV ONE ×2 (07:29→08:39)
[2023-10-20] MEDS ORDERED: Crestor40 MG PO (07:39)
[2023-10-20] MEDS ORDERED: FentaNYL Citrate 50 MCG/ML 2 ML Injection ONE ×2 (08:39→08:43)
[2023-10-20] MEDS ORDERED: Midazolam HCl 1MG / ML 2ML Vial ONE ×2 (08:39→08:43)
[2023-10-20] MEDS ORDERED: Protamine Sulfate 50 MG Amp ONE (10:19)
[2023-10-20] MEDS ORDERED: HydrALAZINE HCl 20 MG / ML 1ML Vial ONE (10:19)
[2023-10-20] MEDS ORDERED: Clopidogrel Bisulfate 300 MG Cap ONE (12:02)
--- NOTE | 2023-10-20 12:16 | NUR ---
PT BACK S/P RIGHT PERIPHERAL W STENT PLACEMENT TO SFA X2. SHEATH TO LEFT GROIN IN PLACE; SITE WNL, W/O SWELLING, HEMATOMA, OR BLEEDING. SHEATH TO BE PULLED IN RECOVERY ROOM. VSS. RIGHT PT +2. PT AT BEDSIDE.
--- NOTE | 2023-10-20 13:12 | NUR ---
ACT REDRAWN S/P 1 HOUR FROM PROCEDURE AND IS 195. SHEATH FLUSHED. SITE REMAINS UNCHANGED FROM PREVIOUS ASSESSMENT.
--- NOTE | 2023-10-20 13:21 | NUR ---
PT VOIDED USING URINAL, 300CC OF CLEAR YELLOW URINE.
--- NOTE | 2023-10-20 15:04 | NUR ---
SHEATH PULLED AT 1428, MANUAL PRESSURE HELD, HEMOSTASIS ACHIEVED AT 1453. RAHUL PATCH IN PLACE WITH SMALL DIME SIZED SPOT OF BLOOD TO DRSG. LEFT GROIN SOFT AND NON-TENDER W/O SWELLING, HEMATOMA, OR BLEEDING. 2+ RIGHT P.T., DOPPLER TO LEFT P.T. CAP REFILL <3 SEC.
--- NOTE | 2023-10-20 15:33 | NUR ---
LEFT GROIN REMAINS STABLE; GROIN CHECKS Q 15MIN, CIRC CHECK TO BLE Q 15MIN AND WNL. VSS. 400CC CLEAR URINE TO URINAL.
--- NOTE | 2023-10-20 18:00 | NUR ---
VERBAL AND WRITTEN DISCHARGE INFORMATION GIVEN TO PATIENT AND PATIENT'S WITH CLEAR UNDERSTANDING. PT EATING AND VOIDING W/O DIFFICULTY PRIOR TO DC. PLAVIX CALLED INTO [facility] IN [place]. LEFT GROIN STABLE T/O RECOVERY AND CHECKED JUST PRIOR TO DISCAHRGE. GROIN SITE W/O SWELLING, HEMATOMA, TENDERNESS, OR PAIN. 2+ PULSE TO RIGHT PT, DOPPLER TO LEFT PT(BASELINE). PT DC'D HOME IN STABLE CONDITION AT 1800. PT DC'D VIA WHEELCHAIR IN CARE OF .
--- NOTE | 2023-10-20 18:23 | NUR ---
discharge instructions reviewed with pt and spouse. pt. vss remains stable. R groin site wnl. pt. and spouse verbalized understanding of discharge. assisted pt up to bathroom to void. pt. iv removed catheter intact. all belongings taken with pt via wheel chair to exit. pt spouse to drive pt home.
== END 2023-10-20 23:00 | disposition home or self-care (01) ==
LOC: MHTC 06:54
DX: E11.51 Type 2 diabetes mellitus with diabetic peripheral angiopathy without gangrene (principal); I70.223 Atherosclerosis of native arteries of extremities with rest pain, bilateral legs; I25.10 Atherosclerotic heart disease of native coronary artery without angina pectoris; I10 Essential (primary) hypertension; E78.00 Pure hypercholesterolemia, unspecified; F17.210 Nicotine dependence, cigarettes, uncomplicated; Z79.899 Other long term (current) drug therapy; Z79.84 Long term (current) use of oral hypoglycemic drugs; Z88.8 Allergy status to other drugs, medicaments and biological substances; Z95.1 Presence of aortocoronary bypass graft
CPT/HCPCS: 85347; A9270; J0360; J1644; J2250; J2720; J3010; J7030; J7050

== ENCOUNTER 2023-11-27 08:19 | Day surgery (SDC) | payer OTHER ==
[~2023-11-27] VITALS: Ht 167.6 cm; Wt 64.0 kg
[2023-11-27] VITALS (10 sets, daily range): BP systolic 98–125; BP diastolic 71–91
[~2023-11-27 08:19] MED LIST changes: +Crestor40 MG PO
[2023-11-27] MEDS ORDERED: NS 1,000 ML IV ONE ×2 (09:08→09:55)
[2023-11-27] MEDS ORDERED: Heparin Sodium 1000 Units/ML 10ML MDV ONE ×2 (09:08→09:58)
[2023-11-27] MEDS ORDERED: NS 500 ML IV ONE (09:08)
[2023-11-27] MEDS ORDERED: Nitroglycerin 2 MG/20 ML BTL ONE (09:09)
[2023-11-27] MEDS ORDERED: Midazolam HCl 1MG / ML 2ML Vial ONE (09:55)
[2023-11-27] MEDS ORDERED: FentaNYL Citrate 50 MCG/ML 2 ML Injection ONE (09:55)
--- NOTE | 2023-11-27 13:50 | NUR ---
PT AND S/O VERBALIZES UNDERSTANDING WRITTEN AND VERBAL INSTRUCTIONS. DENIES QUESTIONS OR CONCERNS. VSS. NADN. PT R FEMORAL SITE REMAINS C/D/I. NO BLEEDING OR HEMATOMA NOTED. VSS. PT IV DC'D. CATH INTACT.PRESSURE DSG APPLIED. PT AMBULATES TO AND FROM RESTROOM WITHOUT DIFF. PT DRESSES SELF WITHOUT ASSISTANCE. PT DC TO HOME VIA S/O BY SOREN
== END 2023-11-27 15:31 | disposition home or self-care (01) ==
LOC: MHTC 08:19
DX: E11.51 Type 2 diabetes mellitus with diabetic peripheral angiopathy without gangrene (principal); I70.223 Atherosclerosis of native arteries of extremities with rest pain, bilateral legs; I70.208 Unspecified atherosclerosis of native arteries of extremities, other extremity; I25.10 Atherosclerotic heart disease of native coronary artery without angina pectoris; E78.00 Pure hypercholesterolemia, unspecified; F17.210 Nicotine dependence, cigarettes, uncomplicated; Z95.1 Presence of aortocoronary bypass graft; Z88.8 Allergy status to other drugs, medicaments and biological substances; Z79.84 Long term (current) use of oral hypoglycemic drugs; Z79.899 Other long term (current) drug therapy
CPT/HCPCS: 37228; 37232; 75625; 75716; 75774; 76937; 99152; 99153; C1725; C1760; C1769; C1874; C1876; C1887; C1894; C2623; C9765; J1644; J2250; J3010; J7030; J7050; Q9967

== ENCOUNTER 2024-04-28 08:42 | Day surgery (SDC) | payer OTHER ==
[~2024-04-28] VITALS: Ht 167.6 cm; Wt 67.6 kg
[~2024-04-28 08:42] MED LIST changes: +NS 500 ML IV ONE
[2024-04-28] MEDS ORDERED: CeFAZolin Sodium 2,000 MG VIAL ONE (08:45)
[2024-04-28] MEDS ORDERED: NS 50 ML IV ONE (08:47)
[2024-04-28] MEDS ORDERED: NS 500 ML IV ONE (09:24)
[2024-04-28] MEDS ORDERED: FentaNYL Citrate 50 MCG/ML 2 ML Injection ONE (09:24)
[2024-04-28] MEDS ORDERED: propofoL 20 ML IV ONE (09:24)
[2024-04-28 09:51] VITALS: BP 120/79
--- NOTE | 2024-04-28 09:53 | NUR ---
04/28/24 0953 Pam Mitchell PT SITTING UP IN RECLINER, TOLERATING PO LIQUIDS W/O COMPLAINT. VSS, ON RA. PT DENIES PAIN/NAUSEA. PT'S , ASHISH, BROUGHT BACK TO BEDSIDE AT THIS TIME.
== END 2024-04-28 10:10 | disposition home or self-care (01) ==
LOC: ORSCSDS 08:42
PROVIDERS: Orthopaedic Surgery
PROC: 0LN70ZZ Release Right Hand Tendon, Open Approach (ICD-10-PCS; principal; 2024-04-28 10:00)
DX: M65.321 Trigger finger, right index finger (principal); Z79.02 Long term (current) use of antithrombotics/antiplatelets; Z95.0 Presence of cardiac pacemaker; K21.9 Gastro-esophageal reflux disease without esophagitis; Z95.1 Presence of aortocoronary bypass graft; F41.9 Anxiety disorder, unspecified; F32.A Depression, unspecified; I10 Essential (primary) hypertension; E78.00 Pure hypercholesterolemia, unspecified; F17.210 Nicotine dependence, cigarettes, uncomplicated; E11.9 Type 2 diabetes mellitus without complications; Z79.84 Long term (current) use of oral hypoglycemic drugs; Z79.899 Other long term (current) drug therapy
CPT/HCPCS: 82947; J0690; J2704; J3010; J7040

== ENCOUNTER 2024-05-24 09:09 | Inpatient (IN) | payer OTHER ==
[2024-05-24] VITALS (22 sets, daily range): BP systolic 103–129; BP diastolic 55–80
[~2024-05-24] VITALS: Ht 167.6 cm; Wt 84.9 kg
[~2024-05-24 09:09] MED LIST changes: -NS 500 ML IV ONE
[2024-05-24] MEDS ORDERED: Ondansetron HCl 2 MG / ML 2ML Vial IV ONE (09:50)
[2024-05-24] MEDS ORDERED: NS 1,000 ML IV SCH (09:50)
[2024-05-24] MEDS ORDERED: Ketorolac Tromethamine 15mg Vial IV ONE (09:50)
[2024-05-24 09:53] LABS: BASOPHILS ABSOLUTE AUTO 0.03 K/mm3 (0.00-0.23); BASOPHILS PERCENT AUTO 0 % (0-2); EOSINOPHILS PERCENT AUTO 0 % (0-6); Hemoglobin 15.2 g/dL (13.5-17.5); IMMATURE GRAN ABSOLUTE AUTO 0.08 K/mm3 (0.00-0.10); IMMATURE GRAN PERCENT AUTO 1 % (0-1); LYMPHOCYTES ABSOLUTE AUTO 0.45 K/mm3 (0.84-5.20); LYMPHOCYTES PERCENT AUTO 4 % (21-46); MONOCYTES ABSOLUTE AUTO 1.29 K/mm3 (0.16-1.47); MONOCYTES PERCENT AUTO 10 % (4-13); Mean Corpuscular HGB 32.5 pg (26.0-34.0); Mean Corpuscular Volume 99 fL (80-100); Mean Platelet Volume 9.4 fL (9.1-12.4); NEUTROPHILS ABSOLUTE AUTO 10.71 K/mm3 (1.96-9.15); NEUTROPHILS PERCENT AUTO 85 % (41-73); Platelet Count 190 K/mm3 (150-400); RDW Coefficient Variation 13.1 % (11.7-14.2); RDW Standard Deviation 46.6 fL (35.1-46.3); Red Blood Cell Count 4.67 M/mm3 (4.30-5.90); White Blood Cell Count 12.56 K/mm3 (4.00-11.30)
[2024-05-24 10:15] LABS: Albumin, Blood 4.2 g/dL (3.4-5.0); Albumin/Globulin Ratio 1.1 (0.8-1.8); Bilirubin, Total 0.5 mg/dL (0.1-1.0); Bun/Creatinine Ratio 26.4 (12.0-20.0); Calcium, Blood 9.4 mg/dL (8.5-10.1); Creatinine, Blood 1.25 mg/dL (0.60-1.20); Globulin, Blood 3.9 g/dL (2.2-4.0); Potassium, Blood 3.6 mmol/L (3.5-5.5); Total Protein, Blood 8.1 g/dL (6.4-8.2)
[2024-05-24 10:42] LABS: PCO2 Venous 29.4 mmHg (38-42)
[2024-05-24 10:44] LABS: pH Blood Venous 7.06 (7.34-7.37)
[2024-05-24] MEDS ORDERED: Azithromycin 500 MG in NS 250 ML IV ONE (10:45)
[2024-05-24] MEDS ORDERED: CefTRIAXone Sodium 1,000 MG in NS 100 ML IV ONE (10:45)
[2024-05-24 10:50] LABS: Source, Urine Clean Catch
[2024-05-24 10:57] LABS: Appearance, Urine Clear (Clear); Bilirubin, Urine Neg (Neg); Blood, Urine Neg (Neg); Color, Urine Yellow (P-Yellow); Glucose Qualitative, Urine 4+ (Neg); Ketones, Urine 4+ (Neg); Leukocyte Esterase, Urine Neg (Neg); Nitrite, Urine Neg (Neg); Protein, Urine 2+ (Neg); Specific Gravity, Urine 1.025 (1.003-1.022); Urobilinogen, Urine NORM (Normal)
[2024-05-24] MEDS ORDERED: Lactated Ringer's 1,000 ML IV ONE (11:00)
[2024-05-24 11:14] LABS: Red Blood Cells, Urine 0-2 /hpf (0-2); White Blood Cells, Urine 0-2 /hpf (0-5)
[2024-05-24 11:18] LABS: Granular Casts 0-2 /lpf (0)
[2024-05-24 11:22] LABS: Amorphous Light (0-Heavy); Bacteria Few /hpf; Mucus Light (0-Heavy); Squamous Epithelial Cells Rare /hpf (Few)
[2024-05-24 11:24] LABS: Renal Epithelial Rare /hpf (0-Rare)
[2024-05-24] MEDS ORDERED: Potassium Chl 20MEQ/Water100ML 100 ML IV SCH (11:30)
[2024-05-24] MEDS ORDERED: D5W-1/4NS 1,000 ML IV SCH (11:30)
[2024-05-24] MEDS ORDERED: Insulin Human Regular 100 UNIT in NS 100 ML IV SCH (11:30)
[2024-05-24 11:43] LABS: Magnesium, Blood 1.9 mg/dL (1.6-2.4)
[2024-05-24 11:46] LABS: Influenza B, PCR NEGATIVE (NEGATIVE); Resp Syncytial Virus, PCR NEGATIVE (NEGATIVE); SARS-Cov-2 (COVID-19) PCR, MMC NEGATIVE (NEGATIVE)
[2024-05-24] MEDS ORDERED: D5W-1/2NS 1,000 ML IV SCH ×2 (12:10→12:45)
[2024-05-24] MEDS ORDERED: VENL150ER PO (12:34)
[2024-05-24] MEDS ORDERED: Crestor40 MG PO (12:34)
[2024-05-24] MEDS ORDERED: Polyethylene Glycol 3350 17 gm PO PRN (12:45)
[2024-05-24] MEDS ORDERED: Prochlorperazine Edisylate 10 mg Vial IV PRN (12:45)
[2024-05-24] MEDS ORDERED: Acetaminophen 500 MG Tab PO PRN (12:45)
[2024-05-24] MEDS ORDERED: Dextrose 50% 50 ML Vial IV PRN (12:50)
[2024-05-24] MEDS ORDERED: Propranolol HCL 20 MG TAB PO ONE (17:05)
[2024-05-24] MEDS ORDERED: MELATONIN5 M1 PO (18:14)
--- NOTE | 2024-05-24 19:05 | NUR ---
Summary. Pt arrived to ICU at approximately 1630. Alert and oriented, nauseous. at bedside. Pt denied pain/numbness/tingling. Tachycardic on the monitor. VS otherwise within normal range. Physical exam otherwise unremarkable. Insulin gtt infusing at 4.3 U/KG/HR. D5 1/2NS at 125 ML/HR. See chart for further details.
[2024-05-24] MEDS ORDERED: Melatonin 5 MG Tablet PO SCH (21:00)
[2024-05-24] MEDS ORDERED: TraZODone HCl 100 MG Tab PO SCH (21:00)
[2024-05-24] MEDS ORDERED: Oseltamivir Phosphate 75 MG Cap PO SCH (21:00)
[2024-05-24 21:10] LABS: Potassium, Blood 3.9 mmol/L (3.5-5.5)
--- NOTE | 2024-05-24 21:39 | NUR ---
ASSUMPTION OF CARE REPORT RECIEVED FROM DAYSHIFT NURSE. WAS TOLD BY DAYSHIFT NURSE THAT THEY COMPLETED A PATIENT ASSESSMENT BUT DID NOT COMPLETE ASMISSION ASSESSMENT. NURSES ASSESSMENT DOCUMENTED IN NOTES. ADMISSION ASSESSMENT FOR PT ADMITTED AT 1630 COMPLETED BY ORE BUYER NURSE AT 2000. WILL CONTINUE TO MONITOR UNTIL REPORT PASSED TO DAY SHIFT TEAM.
[2024-05-25] VITALS (36 sets, daily range): BP systolic 106–171; BP diastolic 52–108
[2024-05-25 03:45] LABS: Hematocrit 35.7 % (37.0-53.0); Hemoglobin 12.6 g/dL (13.5-17.5); Mean Corpuscular HGB 33.2 pg (26.0-34.0); Mean Corpuscular HGB Conc 35.3 g/dL (31.5-36.5); Mean Platelet Volume 9.2 fL (9.1-12.4); Platelet Count 149 K/mm3 (150-400); RDW Coefficient Variation 13.2 % (11.7-14.2); RDW Standard Deviation 45.1 fL (35.1-46.3); Red Blood Cell Count 3.79 M/mm3 (4.30-5.90); White Blood Cell Count 9.59 K/mm3 (4.00-11.30)
[2024-05-25 03:47] LABS: Mean Corpuscular Volume 94 fL (80-100)
[2024-05-25 04:04] LABS: Magnesium, Blood 1.7 mg/dL (1.6-2.4)
[2024-05-25 04:05] LABS: Albumin, Blood 3.1 g/dL (3.4-5.0); Anion Gap 11 mmol/L (3-11); Blood Urea Nitrogen 28 mg/dL (8-24); Bun/Creatinine Ratio 33.9 (12.0-20.0); CO2, Blood 21 mmol/L (21-32); Calcium, Blood 8.4 mg/dL (8.5-10.1); Chloride, Blood 111 mmol/L (98-108); Creatinine, Blood 0.83 mg/dL (0.60-1.20); Glomerular Filtration Rate 93 (60-); Glucose, Blood 118 mg/dL (70-99); Potassium, Blood 3.6 mmol/L (3.5-5.5); Sodium, Blood 139 mmol/L (136-145)
[2024-05-25 04:06] LABS: Phosphorus, Blood 2.2 mg/dL (2.5-4.9)
[2024-05-25] MEDS ORDERED: Insulin Glargine-Yfgn 100 Unit/mL 3 ML SYR SC ONE (04:20)
[2024-05-25] MEDS ORDERED: Albuterol 2.5 MG/3 ML VIAL INH PRN (04:30)
--- NOTE | 2024-05-25 05:47 | NUR ---
SHIFT SUMMARY PT HAS TOLERATED SHIFT WELL. PT IS SLOW TO ANSWER QUESTIONS BUT ABLE TO ANSWER APPROPRIATELY. THROUGHOUT NIGHT, PT GRABBING AND ATTEMPTING TO REMOVE SOME VITALS MONITORING CHORDS. THIS NURSE IS ABLE TO PREVENT HIM FROM DOING SO AND ASKS PT ORIENTATION QUESTIONS. PT IS ABLE TO ANSWER APPROPRIATELY AT THIS TIME. PTS ANION GAP IS CLOSED. INFORMED PHYSICIAN AND GIVEN VERBAL ORDERS TO TRANSITION TO DAILY LANTUS. PT TOLERATING TRANSITION WELL. WILL CONTINUE TO MONITOR UNTIL REPORT PASSED TO DAY SHIFT TEAM.
[2024-05-25] MEDS ORDERED: Insulin Human Lispro 100 Units/ML 3ML Syringe SC SCH (07:30)
[2024-05-25] MEDS ORDERED: Sodium Phosphate Mono/Dibasic 250 MG Tab PO SCH (08:00)
[2024-05-25] MEDS ORDERED: Venlafaxine HCl 75 MG CapCR PO SCH (09:00)
[2024-05-25] MEDS ORDERED: Losartan Potassium 50 MG Tab PO SCH (09:00)
[2024-05-25] MEDS ORDERED: Clopidogrel Bisulfate 75 MG Tab PO SCH (09:00)
[2024-05-25] MEDS ORDERED: Aspirin 81 MG Chew PO SCH (09:00)
[2024-05-25] MEDS ORDERED: CefTRIAXone Sodium 2,000 MG in NS 100 ML IV SCH (09:00)
[2024-05-25] MEDS ORDERED: Propranolol HCL 20 MG TAB PO SCH (09:00)
[2024-05-25] MEDS ORDERED: Rosuvastatin Calcium 10 MG Tab PO SCH (09:00)
[2024-05-25] MEDS ORDERED: Enoxaparin 40 MG/0.4 ML SYR SC SCH (09:00)
[2024-05-25] MEDS ORDERED: DEXTROMETHORPHAN/BENZOCAINE 1 EACH LOZENGE MT PRN (11:55)
[2024-05-25] MEDS ORDERED: Ibuprofen 400 MG Tab PO PRN (11:55)
--- NOTE | 2024-05-25 16:10 | NUR ---
SHIFT SUMMARY PATIENT ALERT AND ORIENTED BUT SLOW TO RESPOND AT TIMES. CALLS APPROPRIATELY AND ABLE TO MAKE HIS NEEDS KNOWN. CARDIAC: SR HR 80S, OCCASIONAL RUNS WHERE HE IS V-PACED. LUNGS: CLEAR/DIM IN BASES. +COUGH, THICK SPUTUM. C/O PLEURITIC PAIN AND SORE THROAT. PRN MEDICATIONS HELPFUL. : USING URINAL AT BEDSIDE. URINE IS CLEAR/YELLLOW GI: ABDOMEN IS SOFT/NON TENDER WITH NORMOACTIVE BOWEL TONES. XL BM SOFT BUT FORMED STOOL. DENIED ANY N/V. SKIN: INTACT. SOME MINIMAL REDNESS NOTED TO GLUTEAL CLEFT, BLANCHABLE. MOBILITY: GENERALIZED WEAKNESS, FWW WITH MIN ASSIST. REQUIRED FREQUENT CUES FOR SAFETY. AT BEDSIDE MOST OF THE DAY.
--- NOTE | 2024-05-25 18:08 | NUR ---
TRANSFER NOTE PT TRANSFERRED FROM ICU 6, REPORT RECEIVED FROM JB NOBLES.
[2024-05-25] MEDS ORDERED: GuaiFENesin 600 MG TabCR PO SCH (21:00)
[2024-05-25] MEDS ORDERED: Tamsulosin HCl 0.4 MG Cap PO SCH (21:00)
[2024-05-25] MEDS ORDERED: Oseltamivir Phosphate 75 MG Cap PO SCH (21:00)
[2024-05-26 01:35] VITALS: BP 144/79
[2024-05-26] MEDS ORDERED: TraZODone HCl 50 MG Tab PO ONE (02:00)
--- NOTE | 2024-05-26 05:52 | NUR ---
SHIFT SUMMARY PT ALERT AND ORIENTED TIMES 3. PT IS ADMITTED FOR DKA JARDIANE SEPSIS. PT HAS RIGHT ARM IV, TELE 80 S. THERE WERE THREE CALLS FROM TELE ADVISING OF ST DEPRESSION. PT PULLING TELE OFF MULTIPLE TIMES. AT BEDSIDE ASSISTING WITH CARE. PASSENGER TIRE BUILDER CONTACTED REGARDING TELE AND RESTLESSNESS. PASSENGER TIRE BUILDER ORDERED ONE TIME 50MG TRAZADONE PO. PT APPEARED TO SLEEP ON AND OFF AFTER. PT ACHS AND ADA DIET. CALL LIGHT WITHIN REACH, RAILS TIMES 2, BED IN LOW POSITION.
[2024-05-26] MEDS ORDERED: Omeprazole 20 MG CapCR PO SCH ×2 (06:00)
[2024-05-26 06:25] VITALS: BP 120/79
[2024-05-26 08:04] VITALS: BP 126/74
[2024-05-26] MEDS ORDERED: Insulin Glargine-Yfgn 100 Unit/mL 3 ML SYR SC SCH (09:00)
[2024-05-26 12:09] LABS: Bun/Creatinine Ratio 28.6 (12.0-20.0); Calcium, Blood 8.8 mg/dL (8.5-10.1); Creatinine, Blood 0.81 mg/dL (0.60-1.20); Potassium, Blood 3.4 mmol/L (3.5-5.5)
[2024-05-26] MEDS ORDERED: Potassium Chloride 20 MEQ TabCR PO ONE (12:35)
--- NOTE | 2024-05-26 15:25 | NUR ---
SUPPORTATIVE VISIT. PATIENTS AT BEDSIDE. THERAPUTIC CONVERSATION. PATIENT WAS PENDING DISCHARGE TODAY BUT BEGAN VOMITING. PATIENT WILL STAY TONIGHT REPEAT LABS AND LIKELY DISCHARGE TOMORROW. DISCUSSED WITH WITH PROVIDER.
[2024-05-26 16:45] VITALS: BP 134/77
--- NOTE | 2024-05-26 16:49 | NUR ---
SHIFT SUMMARY PT AOX4, SLOW TO RESPOND. , HECTOR, AT THE BS. SHE AIDES IN HIS CARE. EPISODE OF EMESIS THIS SHIFT, MEDICATED PER THE EMAR. BMP ORDERED AND REPEAT THIS EVENING. PT HAS HAD NO EPISODES SINCE THIS AFTERNOON. PROVIDER AWARE. REPOSITIONED SELF AND ASSISTED THROUGHOUT THE SHIFT. NO OTHER ACUTE COMPLAINTS. CALL LIGHT WITHIN REACH, BED LOCKED AND IN THE LOWEST POSITION. WILL REPORT TO ONCOMING NURSE.
[2024-05-26 18:55] LABS: Bun/Creatinine Ratio 27.5 (12.0-20.0); Calcium, Blood 9.4 mg/dL (8.5-10.1); Creatinine, Blood 0.76 mg/dL (0.60-1.20); Potassium, Blood 3.7 mmol/L (3.5-5.5)
[2024-05-26 20:38] VITALS: BP 133/75
[2024-05-27 03:54] VITALS: BP 129/72
[2024-05-27 06:04] LABS: Hematocrit 35.8 % (37.0-53.0); Hemoglobin 12.2 g/dL (13.5-17.5); Mean Corpuscular HGB 32.5 pg (26.0-34.0); Mean Corpuscular HGB Conc 34.1 g/dL (31.5-36.5); Mean Corpuscular Volume 96 fL (80-100); Mean Platelet Volume 9.1 fL (9.1-12.4); Platelet Count 121 K/mm3 (150-400); Red Blood Cell Count 3.75 M/mm3 (4.30-5.90); White Blood Cell Count 5.35 K/mm3 (4.00-11.30)
[2024-05-27 06:37] LABS: Albumin, Blood 2.7 g/dL (3.4-5.0); Anion Gap 15 mmol/L (3-11); Blood Urea Nitrogen 25 mg/dL (8-24); Bun/Creatinine Ratio 34.7 (12.0-20.0); CO2, Blood 22 mmol/L (21-32); Calcium, Blood 8.9 mg/dL (8.5-10.1); Chloride, Blood 104 mmol/L (98-108); Creatinine, Blood 0.72 mg/dL (0.60-1.20); Glomerular Filtration Rate 97 (60-); Glucose, Blood 118 mg/dL (70-99); Phosphorus, Blood 2.6 mg/dL (2.5-4.9); Potassium, Blood 3.7 mmol/L (3.5-5.5); Sodium, Blood 137 mmol/L (136-145)
[2024-05-27 07:51] VITALS: BP 137/79
[2024-05-27] MEDS ORDERED: OSEL75CA PO (14:35)
[2024-05-27] MEDS ORDERED: GUAI600T33 PO (14:35)
[2024-05-27] MEDS ORDERED: AMOCLA875 PO (14:36)
--- NOTE | 2024-05-27 15:44 | NUR ---
DC-1445 PT LEFT IN STABLE CONDITION ON RA WITH ALL BELONGINGS AND , HECTOR.
[2024-05-31 09:35] LABS: Influenza A, PCR POSITIVE (NEGATIVE)
== END 2024-05-27 15:01 | disposition home or self-care (01) | DRG 871 ==
LOC: ER 09:09 → ERHOLD 12:42 → ICUE 16:27 → MEDS 05-25 18:03
PROVIDERS: Student in an Organized Health Care Education/Training Program; ADMIT Internal Medicine
DX: A41.89 Other specified sepsis (principal); E11.10 Type 2 diabetes mellitus with ketoacidosis without coma; N17.9 Acute kidney failure, unspecified; R65.20 Severe sepsis without septic shock; J10.1 Influenza due to other identified influenza virus with other respiratory manifestations; F17.210 Nicotine dependence, cigarettes, uncomplicated; T38.3X5A Adverse effect of insulin and oral hypoglycemic [antidiabetic] drugs, initial encounter; I25.10 Atherosclerotic heart disease of native coronary artery without angina pectoris; I10 Essential (primary) hypertension; F32.A Depression, unspecified; E78.5 Hyperlipidemia, unspecified; N40.0 Benign prostatic hyperplasia without lower urinary tract symptoms; Z88.8 Allergy status to other drugs, medicaments and biological substances; Z95.0 Presence of cardiac pacemaker; Z79.84 Long term (current) use of oral hypoglycemic drugs; Z79.82 Long term (current) use of aspirin; Z79.02 Long term (current) use of antithrombotics/antiplatelets; Z95.1 Presence of aortocoronary bypass graft; Z86.73 Personal history of transient ischemic attack (TIA), and cerebral infarction without residual deficits; Z95.3 Presence of xenogenic heart valve; Z95.5 Presence of coronary angioplasty implant and graft
CPT/HCPCS: 0241U; 36415; 71045; 80048; 80051; 80053; 80069; 81001; 82010; 82803; 82947; 83605; 83735; 83930; 84100; 84484; 85025; 85027; 87040; 93005; 93010; 94760; 96361; 96365; 96367; 96375; 99285-25; A9270; J0456; J0696; J0780; J1650; J1815; J1885; J2405; J3480; J7030; J7042; J7050; J7120

== ENCOUNTER 2025-01-30 00:33 | Emergency (ER) | payer OTHER ==
[~2025-01-30] VITALS: Ht 167.6 cm; Wt 66.7 kg
[~2025-01-30 00:33] MED LIST changes: +AMOCLA875 PO; +GUAI600T33 PO; +OSEL75CA PO; +VENL150ER PO
[2025-01-30 02:11] LABS: BASOPHILS ABSOLUTE AUTO 0.10 K/mm3 (0.00-0.23); BASOPHILS PERCENT AUTO 1 % (0-2); EOSINOPHILS ABSOLUTE AUTO 0.35 K/mm3 (0.00-0.68); EOSINOPHILS PERCENT AUTO 4 % (0-6); Hematocrit 45.8 % (37.0-53.0); Hemoglobin 15.3 g/dL (13.5-17.5); IMMATURE GRAN ABSOLUTE AUTO 0.03 K/mm3 (0.00-0.10); IMMATURE GRAN PERCENT AUTO 0 % (0-1); LYMPHOCYTES ABSOLUTE AUTO 2.21 K/mm3 (0.84-5.20); LYMPHOCYTES PERCENT AUTO 27 % (21-46); MONOCYTES ABSOLUTE AUTO 0.64 K/mm3 (0.16-1.47); MONOCYTES PERCENT AUTO 8 % (4-13); Mean Corpuscular HGB Conc 33.4 g/dL (31.5-36.5); Mean Corpuscular Volume 102 fL (80-100); NEUTROPHILS ABSOLUTE AUTO 4.79 K/mm3 (1.96-9.15); NEUTROPHILS PERCENT AUTO 59 % (41-73); NRBC ABSOLUTE 0.00 K/mm3 (0.00-0.02); NRBC Auto 0.0 /100 WBC (0.0-0.2); Platelet Count 155 K/mm3 (150-400); RDW Coefficient Variation 12.6 % (11.7-14.2); RDW Standard Deviation 47.1 fL (35.1-46.3)
[2025-01-30 02:24] LABS: Alanine Aminotransfer (ALT/SGP 231.0 U/L (12-78); Albumin, Blood 3.6 g/dL (3.4-5.0); Albumin/Globulin Ratio 1.1 (0.8-1.8); Anion Gap 8.0 mmol/L (3-11); Aspartate Aminotrans (AST/SGOT 183.0 U/L (12-37); Bilirubin, Total 0.6 mg/dL (0.1-1.0); Blood Urea Nitrogen 26.0 mg/dL (8-24); CO2, Blood 24.0 mmol/L (21-32); Calcium, Blood 9.1 mg/dL (8.5-10.1); Chloride, Blood 112.0 mmol/L (98-108); Creatinine, Blood 0.92 mg/dL (0.60-1.20); Globulin, Blood 3.2 g/dL (2.2-4.0); Glucose, Blood 193.0 mg/dL (70-99); Potassium, Blood 4.5 mmol/L (3.5-5.5); Sodium, Blood 139.0 mmol/L (136-145); Total Protein, Blood 6.8 g/dL (6.4-8.2)
[2025-01-30] MEDS ORDERED: NS 1,000 ML IV SCH (03:00)
[2025-01-30] MEDS ORDERED: Ipratropium/Albuterol SulF 2.5-0.5MG/3 ML Amp INH ONE (03:00)
[2025-01-30 03:08] LABS: Source, Urine Clean Catch
[2025-01-30 03:10] LABS: Bilirubin, Urine Neg (Neg); Glucose Qualitative, Urine 4+ (Neg); Ketones, Urine Neg (Neg); Leukocyte Esterase, Urine Neg (Neg); Protein, Urine 1+ (Neg); Specific Gravity, Urine 1.020 (1.003-1.022); Urobilinogen, Urine NORM (Normal)
[2025-01-30 03:12] VITALS: BP 111/75
[2025-01-30 03:12] LABS: Color, Urine Yellow (P-Yellow)
[2025-01-30] MEDS ORDERED: AZIT250 PO (04:10)
== END 2025-01-30 04:33 | disposition home or self-care (01) ==
LOC: ER 00:33
PROVIDERS: Emergency Medicine
DX: J18.9 Pneumonia, unspecified organism (principal); E86.0 Dehydration; E11.9 Type 2 diabetes mellitus without complications; J44.0 Chronic obstructive pulmonary disease with (acute) lower respiratory infection; I25.10 Atherosclerotic heart disease of native coronary artery without angina pectoris; E78.5 Hyperlipidemia, unspecified; F17.210 Nicotine dependence, cigarettes, uncomplicated; Z79.84 Long term (current) use of oral hypoglycemic drugs; Z79.899 Other long term (current) drug therapy; Z88.8 Allergy status to other drugs, medicaments and biological substances
CPT/HCPCS: 51798; 71046; 80053; 84484; 85025; 93005; 93010; 99285-25; A9270; J7030